=== PATIENT | female | born 1950 | race Caucasian/White ===

== ENCOUNTER → 2021-06-09 | Outpatient (CLI) | payer MEDICARE, OTHER ==
[~2021-06-09] MED LIST: ASPIRIN81 MG PO; ATORVASTATIN CA20 MG PO; BRILINTA 90 MG90 MG PO; ELIQUIS 5 MG TAB5 MG PO; LEVEMIR 10100 UNITS/ SQ; LEVEMIR100 UNIT/1 SC; LEVEMIR100 UNIT/1 SQ; LIPITOR TAB 1010 MG PO; LISINOPRIL10 MG PO; LOPRESSOR 25 MG25 MG PO; NITROSTAT 0.40.4 MG SL; NOVOLOG100 UNIT/1 SC; SYNTHROID100 MCG PO; SYNTHROID112 MCG PO
[2021-06-09 13:54] LABS: BUN/CREATININE RATIO 23 (0-10)
== END ==
LOC: LAB 12:53
PROVIDERS: Internal Medicine Nephrology
DX: E87.1 Hypo-osmolality and hyponatremia (principal)
CPT/HCPCS: 36415; 80048

== ENCOUNTER 2021-07-12 09:24 | Inpatient (IN) | payer MEDICARE, OTHER ==
[~2021-07-12] VITALS: Ht 165.1 cm; Wt 65.8 kg
[~2021-07-12 09:24] MED LIST changes: -LEVEMIR100 UNIT/1 SC
[2021-07-12 10:37] LABS: HEMOGLOBIN 11.7 gm/dl (12.3-15.3); RED BLOOD COUNT 3.97 M/UL (4.00-5.10); WHITE BLOOD COUNT 5.8 K/UL (4.5-11.0)
[2021-07-12 10:51] LABS: BUN/CREATININE RATIO 14 (0-10)
[2021-07-12 17:23] LABS: BUN/CREATININE RATIO 11 (0-10)
[2021-07-12 23:54] LABS: BUN/CREATININE RATIO 11 (0-10)
[2021-07-13] MEDS ORDERED: CLOPIDOGREL75 MG PO (01:19)
[2021-07-13] MEDS ORDERED: LEVOTHYROXINE88 MCG PO (01:20)
[2021-07-13] MEDS ORDERED: LISINOPRIL20 MG PO (01:22)
[2021-07-13 05:41] LABS: RED BLOOD COUNT 3.75 M/UL (4.00-5.10)
[2021-07-13 06:14] LABS: BUN/CREATININE RATIO 8 (0-10)
[2021-07-13] MEDS ORDERED: BASAGLAR K100 UNIT/1 SC (15:19)
--- NOTE | 2021-07-13 17:58 | NUR ---
pharmacy aware pt's home meds need reconciliation
[2021-07-14 08:14] LABS: HEMOGLOBIN 11.1 gm/dl (12.3-15.3); RED BLOOD COUNT 3.73 M/UL (4.00-5.10); WHITE BLOOD COUNT 5.6 K/UL (4.5-11.0)
[2021-07-14 08:44] LABS: BUN/CREATININE RATIO 11 (0-10)
[2021-07-15 06:58] LABS: HEMOGLOBIN 11.4 gm/dl (12.3-15.3); RED BLOOD COUNT 3.92 M/UL (4.00-5.10); WHITE BLOOD COUNT 4.9 K/UL (4.5-11.0)
[2021-07-15 07:37] LABS: BUN/CREATININE RATIO 12 (0-10)
[2021-07-16 07:39] LABS: HEMOGLOBIN 10.9 gm/dl (12.3-15.3); RED BLOOD COUNT 3.75 M/UL (4.00-5.10); WHITE BLOOD COUNT 5.9 K/UL (4.5-11.0)
[2021-07-16 08:15] LABS: BUN/CREATININE RATIO 17 (0-10)
[2021-07-16] MEDS ORDERED: ZOFRAN4 MG PO (14:38)
== END 2021-07-16 16:00 | disposition home or self-care (01) | DRG 645 ==
LOC: ER1 09:24 → MED SURG 4 12:24 → CDU 12:24 → MED SURG 4 14:10
PROVIDERS: Internal Medicine; Internal Medicine Nephrology; Physician Assistant; ADMIT Internal Medicine
DX: E22.2 Syndrome of inappropriate secretion of antidiuretic hormone (principal); E11.9 Type 2 diabetes mellitus without complications; Z20.822 Contact with and (suspected) exposure to COVID-19; E86.0 Dehydration; E03.9 Hypothyroidism, unspecified; E86.1 Hypovolemia; D64.9 Anemia, unspecified; I10 Essential (primary) hypertension; I16.0 Hypertensive urgency; I34.0 Nonrheumatic mitral (valve) insufficiency; E78.5 Hyperlipidemia, unspecified; I27.20 Pulmonary hypertension, unspecified; I44.0 Atrioventricular block, first degree; I25.10 Atherosclerotic heart disease of native coronary artery without angina pectoris; I48.0 Paroxysmal atrial fibrillation; Z79.01 Long term (current) use of anticoagulants; Z79.4 Long term (current) use of insulin; Z95.5 Presence of coronary angioplasty implant and graft; Z98.51 Tubal ligation status; Z98.42 Cataract extraction status, left eye; Z98.41 Cataract extraction status, right eye; Z82.49 Family history of ischemic heart disease and other diseases of the circulatory system; Z80.3 Family history of malignant neoplasm of breast; I25.2 Old myocardial infarction
CPT/HCPCS: 36415; 71045; 80048; 80053; 81001; 82436; 82550; 82553; 82962; 83874; 83935; 84133; 84295; 84300; 84439; 84443; 84484; 85025; 85027; 93005; 96374; 99285; J2405; J7030; J7131; U0002

== ENCOUNTER → 2021-07-20 | Outpatient (CLI) | payer MEDICARE, OTHER ==
[~2021-07-20] MED LIST changes: +BASAGLAR K100 UNIT/1 SC; +CLOPIDOGREL75 MG PO; +LEVOTHYROXINE88 MCG PO; +LISINOPRIL20 MG PO; +ZOFRAN4 MG PO
[2021-07-20 11:03] LABS: BUN/CREATININE RATIO 16 (0-10)
== END ==
LOC: LAB 09:30
PROVIDERS: Physician Assistant Medical
DX: E87.1 Hypo-osmolality and hyponatremia (principal)
CPT/HCPCS: 36415; 80048